=== PATIENT | female | born 1960 | race Caucasian/White ===

== ENCOUNTER → 2019-03-22 09:12 | Day surgery (SDC) | payer BC ==
[~2019-03-22 09:12] MED LIST: Buffered Lidocaine 1% SYRIN* 1 ML/SYRINGE INTRADERM ONE; Gelfoam 12-7 ADSORBABL SPONGE* 1 EA SPONGE ONE; HYDROcodone/ACET. 7.5/325 LIQ* 15 ML UDC ONE; Lactated Ringers 1000 ML Bag* 1,000 ML IV SCH; Lidocaine 2% EPI 1:200000 MPF*10-20 ML VIAL ONE; Lidocaine 2% PF * 5 ML VIAL ONE; Naloxone* 0.4 MG/ML 1 ML VIAL IV PRN; Ondansetron INJ* 2 MG/ML VIAL IV PRN; Oxymetazoline 0.05% NASAL SPR* 15 ML BTL ONE; Propofol* 10 MG/ML 20 ML BTL ONE; Sodium Citrate/Citric Acid* 15 ML UDC ONE; Sodium Citrate/Citric Acid* 15 ML UDC PO ONE; Succinylcholine* 20 MG/ML 10 ML VIAL ONE; Triamcinolone Acetonide* 40 MG/ML 1 ML VIAL ONE; fentaNYL* 50 MCG/ML 2 ML VIAL (100 MCG VIAL) IV PRN; fentaNYL* 50 MCG/ML 2 ML VIAL (100 MCG VIAL) ONE
--- NOTE | 2019-03-22 13:27 | OP ---
OPERATIVE REPORT: DATE OF OPERATION: 03/22/19 DATE OF : 60 SURGEON: Denilson Tobin MD PRE-OP DIAGNOSIS: Chronic left maxillary anterior and posterior ethmoid and frontal sinusitis. POST-OP DIAGNOSIS: Chronic left maxillary anterior and posterior ethmoid and frontal sinusitis. OPERATIVE PROCEDURE: Maxillary antrostomy, removal of tissue, anterior and posterior ethmoidectomy, and nasal frontal ductal exploration and dilatation. BRIEF HISTORY: This is a 58-year-old female with chronic sinusitis, purulent rhinorrhea with odor, n ot improving with medical management for close to a year. DESCRIPTION OF PROCEDURE: The patient was taken to the operating room, general anesthetic was given, the patient was intubated. Nose was decongested with Afrin placed pledgets. Left side was the only site operated on. CT scan was available and used in the operating room. A 0-degree telescope, 30-degree telescopes, and other endoscopic sinus surgery instruments including microshaver were utilized. Initially, we turned our attention to the left side. The uncinate proces s was identified, infiltrated with lidocaine with epinephrine in the middle turbinate and the septum. The uncinate process was then elevated and microshaved away. The antrostomy was then enlarged taki ng away some of the soft tissue and thickened mucosa. Antrum was full of purulent material, hyperpla stic mucosa. Cultures for aerobic and anaerobic were sent. The hyperplastic mucosa was then shaved off with the microshaver. Ethmoidectomy was carried out by entering the ethmoidal bulla coursing post eriorly through the ground lamella and towards the skull base and then working towards the lamina pap yracea laterally and into the nasal frontal duct area superiorly. The nasal frontal duct was explore d and curved suction was introduced in the frontal sinus and copious material was removed. Once adeq uate resection was carried out, the area was packed with Gelfoam which was soaked with steroids. Ócsar gifoam was utilized. The patient was then awakened and sent to the recovery room in stable condition. Instrument and spong e counts were correct. Blood loss was minimal. [id number]/[facility] #: [id number]
[2019-03-22 14:39] VITALS: BP 144/87
== END | disposition home or self-care (01) ==
LOC: OR 09:12
PROVIDERS: ATTEND Otolaryngology
DX: J32.8 Other chronic sinusitis (principal); I10 Essential (primary) hypertension; E78.00 Pure hypercholesterolemia, unspecified; E03.9 Hypothyroidism, unspecified; I47.1 Supraventricular tachycardia; M19.90 Unspecified osteoarthritis, unspecified site
CPT/HCPCS: 87070; 87073; 87077; 87186; 87205; 88305; 88311; A9270-GY; J0330; J2704; J3010; J3301

== ENCOUNTER 2019-06-06 15:46 | Emergency (ER) | payer BC ==
[2019-06-06 16:20] VITALS: BP 126/70
--- NOTE | 2019-06-06 17:01 | UC ---
Complaint Female HPI - HPI Summary HPI Summary: 58-year-old woman comes in with chief complaint of urinary urgency frequency and dysuria. Going on for about one day. The symptoms remind the patient of urinary tract infection. No fevers or chills. No suprapubic pain unless she is urinating. No flank pain. Has been drinking a lot of water which she thinks does help the symptoms. - History Of Current Complaint Chief Complaint: UCGU Stated Complaint: BURNING THROBBING URINATION Time Seen by Provider: 06/06/19 16:30 Pain Intensity: 3 - Allergies/Home Medications Allergies/Adverse Reactions: Allergies Allergy/AdvReac Type Severity Reaction Status Date / Time adalimumab [From Humira] Allergy localized Verified 06/06/19 16:21 reaction clarithromycin [From Biaxin] Allergy GI Upset Verified 06/06/19 16:21 epinephrine Allergy Tachycardia Verified 06/06/19 16:21 etanercept [From Enbrel] Allergy localized Verified 06/06/19 16:21 reaction iohexol Allergy Tachycardia Verified 06/06/19 16:21 nitrofurantoin Allergy Rash Verified 06/06/19 16:21 [From Macrodantin] ENVIRONMENTAL Allergy SINUS Uncoded 06/06/19 16:21 ISSUES PMH/Surg Hx/FS Hx/Imm Hx Previously Healthy: Yes - 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 Sinus 01/2019 - Family History Known Family History: Positive: Non-Contributory - Social History Alcohol Use: Rare Substance Use Type: None Smoking Status (MU): Never Smoked Tobacco Have You Smoked in the Last Year: No Review of Systems All Other Systems Reviewed And Are Negative: Yes Constitutional: Positive: Negative Skin: Positive: Negative Eyes: Positive: Negative ENT: Positive: Negative Respiratory: Positive: Negative Cardiovascular: Positive: Negative Gastrointestinal: Positive: Other - SEE HPI Genitourinary: Positive: Dysuria, Frequency, Urgency Motor: Positive: Negative Neurovascular: Positive: Negative Musculoskeletal: Positive: Negative Neurological: Positive: Negative Psychological: Positive: Negative Is Patient Immunocompromised?: Yes - ON METHOTREXATE Physical Exam Triage Information Reviewed: Yes Appearance: Well-Appearing, No Pain Distress, Well-Nourished Vital Signs: Initial Vital Signs Temp 97.8 F 06/06/19 16:16 Pulse 57 06/06/19 16:16 Resp 16 06/06/19 16:16 BP 126/70 06/06/19 16:16 Pulse Ox 98 06/06/19 16:16 Vital Signs Reviewed: Yes Eye Exam: Normal Eyes: Positive: Conjunctiva Clear Neck: Positive: Supple Respiratory: Positive: Lungs clear, No respiratory distress Cardiovascular: Positive: RRR Abdomen Description: Positive: Nontender, Soft. Negative: CVA Tenderness (R), CVA Tenderness (L) Bowel Sounds: Positive: Present Musculoskeletal: Positive: Strength Intact, ROM Intact Neurological: Positive: Alert, Muscle Tone Normal Psychological: Positive: Age Appropriate Behavior Skin Exam: Normal Complaint Female Dx - Differential Dx/Diagnosis Provider Diagnosis: UTI (urinary tract infection) Discharge - Sign-Out/Discharge Documenting (check all that apply): Patient Departure All imaging exams completed and their final reports reviewed: No Studies - Discharge Plan Condition: Stable Disposition: HOME Prescriptions: Cephalexin CAP* [Keflex CAP*] 500 mg PO TID #21 cap Patient Education Materials: Urinary Tract Infection in Women (ED) Referrals: Lalita Argueta EXCEPTIONAL STUDENT EDUCATION AIDE [Primary Care Provider] - Additional Instructions: FOLLOW UP WITH YOUR DOCTOR IF NOT COMPLETELY IMPROVED. GET RECHECKED SOONER IF YOUR CONDITION WORSENS OR ANY QUESTIONS OR CONCERNS. - Billing Disposition and Condition Condition: STABLE Disposition: Home
--- OUTSIDE RECORDS SUMMARY | 2019-06-06 23:23 | XMS REPORT | Continuity of Care Document ---
:1960 External Reference #:[id number] Author Name Palak Weston O.D. Address [address] [place] [id number] Care Team Providers Name Role Phone Lalita Argueta DISTILLERY WORKER - Nurse Care Team Information Flange Turner [phone] Practitioner Carline Rolle DISTILLERY WORKER - Nurse Care Team Information Flange Turner [phone] Practitioner Problems Active Problems Provider Date Hypercholesterolemia Onset: Irregular heart beat Onset: Primary fibromyalgia syndrome Onset: Irritable bowel syndrome Onset: Gastroesophageal reflux disease Onset: Hypothyroidism Onset: Primary iridocyclitis Palak Weston O.D. Onset: 07/19/2015 Tear film insufficiency Palak Weston O.D. Onset: 07/19/2015 Nuclear senile cataract Palak Weston O.D. Onset: 07/24/2015 Vitreous degeneration Palak Wseton O.D. Onset: 07/24/2015 Conjunctival hemorrhage Palak Weston O.D. Onset: 08/16/2015 Keratoconjunctivitis sicca, not specified Palak Weston O.D. Onset: as Sjogren's Social History Type Date Description Comments Sex Unknown ETOH Use Occasionally consumes alcohol Tobacco Use Start: Unknown Patient has never smoked Recreational Drug Use Denies Drug Use Smoking Status Reviewed: 06/05/19 Patient has never smoked Allergies, Adverse Reactions, Alerts Active Allergies Reaction Severity Comments Date Macrodantin Urticaria 07/19/2015 Epinephrine 08/05/2016 Embrel 08/09/2017 Humara 08/09/2017 Medications Active Medications SIG Qnty Indications Ordering Provider Date Prednisolone Acetate 1 drop left eye 15ml H20.012 Palak Carrera 05/05/2019 1% every 2 hours Ronaldo Weston Suspension Olopatadine HCL Instill 1 Drop 5units Cristel Coronado, 04/11/2019 0.1% Into Both Eyes O.DLula Solution Twice A Day as Needed Genteal Mild as needed Palak Carrera 07/18/2015 0.2% Ronaldo Weston Solution Prilosec 40 mg qd Unknown 40mg Capsules DR Levothyroxine Sodium Unknown 25mcg Tablets Toprol XL Unknown 25mg Tablets ER 24HR Pravachol qd Unknown 40mg Tablets Amitriptyline HCL Unknown 10mg Tablets Methotrexate 4 tabs weekly Unknown 2.5mg Tablets Folic Acid Unknown 1mg Tablets Claritin as needed Unknown 10mg Capsules Bactrim Unknown 400-80mg Tablets Diflucan Unknown 10mg/ml Suspension Rec Immunizations Description No Information Available Vital Signs Description No Information Available Results Description No Information Available Procedures Date Code Description Status 05/05/2019 43250 Est Patient Intermediate Exam Completed Medical Devices Description No Information Available Encounters Type Date Location Provider Dx Diagnosis Office Visit 05/15/2019 Palak Noel H20.012 Primary 11:20a beltran RAMON O.D. iridocyclitis, left eye Office Visit 05/08/2019 Palak Noel H20.012 Primary 3:20p beltran RAMON O.D. 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 05/08/2019 H25.13 Age-related nuclear cataract, bilateral Palak Weston O.D. 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 Plan of Treatment Future Appointment(s):08/23/2019 11:30 am - Palak Weston O.D. at Ahsan Cheatham MD, 06/05/2019 - Palak Weston O.D.H20.012 Primary iridocyclitis, left eyeComments:continue prednisolone 1xday for 1 week then stopFollow up:1 Year Follow Up You can expect to have your eyes dilated at your next visit. If Dr. Weston orders any additional testing, it may require extra time. We recommend that you bring sunglasses, as dilation drops often make you light sensitive until they wear off. We always recommend you bring someone to drive you home if you are uncomfortable driving with your eyes dilated. If you have any questions before your next visit, feel free to call our office at . Functional Status Description No Information Available Mental Status Description No Information Available Referrals Description No Information Available
--- OUTSIDE RECORDS SUMMARY | 2019-06-06 23:24 | XMS REPORT | Continuity of Care Document ---
:1960 External Reference #:[id number] Author Name Denilson Tobin MD Address [address] [place] [address] Care Team Providers Name Role Phone Lalita Argueta F.N.P. Care Team Information [employer]arrings Fabricator Unavailable Lalita Argueta F.N.P. Primary Care Physician Unavailable Payers Date Identification Numbers Payment Provider Subscriber Policy Number: [id number] [facility] Radha Morales Group Number: [id number] [address] [address] PayID: [id number] [place] [address] Problems Active Problems Provider Date Chronic sinusitis Denilson Tobin MD Onset: 02/13/2019 Family History Date Family Member(s) Observation Comments General Allergies General Asthma General Thyroid Disease Social History Type Date Description Comments Sex Unknown Occupation Registered Nurse director Tobacco Use Start: Unknown Never Smoked Cigarettes Tobacco Use Start: Unknown Never Smoked Cigars Tobacco Use Start: Unknown Never Smoked A Pipe Smoking Status Reviewed: 03/28/19 Never Smoked A Pipe Smokeless Tobacco Never Used Smokeless Tobacco ETOH Use Currently occasionally consumes alcohol Allergies, Adverse Reactions, Alerts Active Allergies Reaction Severity Comments Date Macrodantin Hives 02/13/2019 Biaxin Nausea 02/13/2019 Medications Active Medications SIG Qnty Indications Ordering Date Provider Diflucan Take 2 tabs day 1, 15tabs Denilson Tobin 05/05/2019 100mg then 1 pill for 13 MD Tablets days. Sulfamethoxazole/Tri take 1 pill 2 times 28tabs J32.2 Denilson Tobin 10/2018 methoprim DS a day for 14 days. MD 800-160mg Tablets Prednisone 4 tabs po every day 30tabs J32.2 Denilson Tobin 04/24/2019 10mg x3 d, then 3 tabs MD Tablets po every day x3 d, then 2 tabs po every day x3d, then 1 tab po qd x3d, then off Metoprolol Succinate 1 po qd Db Duran 08/18/2018 ER 50mg Tablets ER 24HR Amitriptyline HCL take two tablets by 180tabs Lalita Argueta, 06/21/2013 mouth at bedtime as F.N.P. 10mg Tablets needed Levothyroxine Sodium Take One Tablet By 90tabs E03.8 Irina Almaraz 12/22 Mouth Every Day Florentin, REllie 25mcg Tablets Leucovorin Calcium Take 1 Tablet By Unknown Mouth The Day After 5mg Tablets Methotrexate as Directed Prilosec OTC 40 mg 1 po qd Lalita Argueta, F.N.P. Pravachol Lalita Argueta, 40mg F.N.P. Tablets Folic Acid 10 mg po qd Lalita Argueta, F.N.P. History Medications Nystatin Swish And 5 ml by mouth 150ml Santi Castellanos, 05/05/2019 - Swallow four times a day 05/05/2019 Doxycycline Hyclate take 1 caspule 20caps Denilson Tobin MD 03/30/2019 - every 12 hours 04/23/2019 100mg Capsules Vital Signs Date Vital Result Comment 04/24/2019 2:16pm Weight 160.00 lb Weight 72.576 kg Height 60 inches 5'0" Height in cm's 152.4 cm BMI (Body Mass Index) 31.2 kg/m2 03/30/2019 9:00am Weight 160.00 lb Weight 72.576 kg Height 60 inches 5'0" Height in cm's 152.4 cm BMI (Body Mass Index) 31.2 kg/m2 03/29/2019 10:36am BP Systolic 158 mmHg Manual BP Diastolic 90 mmHg Manual Heart Rate 70 /min Respiratory Rate 18 /min Weight 160.00 lb Weight 72.576 kg Height 60 inches 5'0" Height in cm's 152.4 cm BMI (Body Mass Index) 31.2 kg/m2 03/28/2019 10:13am BP Systolic 156 mmHg Manual BP Diastolic 96 mmHg Manual 03/28/2019 10:09am BP Systolic 175 mmHg Automatic Cuff BP Diastolic 99 mmHg Automatic Cuff Heart Rate 54 /min Weight 160.00 lb Weight 72.576 kg 03/13/2019 9:27am BP Systolic 150 mmHg BP Diastolic 84 mmHg Heart Rate 61 /min Weight 161.00 lb Weight 73.030 kg Height 60 inches 5'0" Height in cm's 152.4 cm BMI (Body Mass Index) 31.4 kg/m2 02/13/2019 9:27am Weight 161.00 lb Weight 73.030 kg Height 60 inches 5'0" Height in cm's 152.4 cm BMI (Body Mass Index) 31.4 kg/m2 Results Test Date Facility Test Result H/L Range Note Wound 04/24/2019 [facility] Wound/Misc SEE RESULT 1 Culture/Sensi c/o Department of Laboratories [place] [address] Stain [phone] Wound 03/22/2019 [facility] Wound/Misc SEE RESULT 2 Culture/Sensi c/o Department of Laboratories [place] [address] Stain [phone] Laboratory test 03/22/2019 [facility] Anaerobic SEE RESULT 3 finding c/o Department [place] [address] [phone] Surgical Pathology SEE RESULT BELOW 4 1 SEE RESULT BELOW Name: EVELYNRADHA Jeimy : [address]: Maggi Torres PA-C Acct: [id number] Unit: [id number] AGE: 58 Location: [facility] Re04/24/19 SEX: F Status: REG REF SPEC: [id number] CONSTANTIN: 04/24/[address]: Maggi Sumner REQ: [id number] RECD: 04/24/19 STATUS: COMP _ SOURCE: WOUND SPDESC: ORDERED: Culture Stain COMMENTS: Left maxillary sinus-please run culture for sensitivities Specimen Description Left Maxillary Sinus Procedure Result Reported Site Wound/Misc Gram Stain Final 04/24/19- 1739 ML 1+ Neutrophils No Organisms Seen Wound/Misc Culture Final 04/27/19- 1018 ML Organism 1 ENTEROBACTER CLOACAE Quantity 1+ Organism 2 STAPHYLOCOCCUS AUREUS Quantity 2+ Organism 3 ALCALIGENES SPECIES Quantity 2+ Organism 4 KLEBSIELLA PNEUMONIAE Quantity 1+ 1. ENTEROBACTER CLOACAE M.I.C. RX --------- ------ Cefazolin >=64 R Cefepime <=1 S Ceftriaxone <=1 S Ciprofloxacin <=0.25 S Gentamicin <=1 S Levofloxacin <=0.12 S Meropenem <=0.25 S Tetracycline 2 S Pipercillin/Tazobactam <=4 S Trimethoprim/Sulfamethoxazole <=20 S CONTINUED ON NEXT PAGE DEPARTMENT OF PATHOLOGY, [address] [place] [address] Von Zhu M.D. Director FAB[facility] # [id number] Patient: EVELYNRADHA S [id number] (Continued) Specimen: [id number] Collected: 04/24/19 Received: 04/24/19-7094 (Continued) Procedure Result Reported Site Wound/Misc Culture Final (continued) 04/27/19- 1018 1. ENTEROBACTER CLOACAE (continued) M.I.C. RX --------- ------ Amoxicillin/Clavulanic Acid >=32 R Aztreonam <=1 S 2. STAPHYLOCOCCUS AUREUS M.I.C. RX --------- ------ Penicillin >=0.5 R Clindamycin R This isolate is presumed to be resistant based on detection of inducible Clindamycin resistance. Clindamycin may still be effective in some patients. Erythromycin R Gentamicin <=0.5 S Linezolid 2 S Oxacillin 0.5 S * Quinupristin/Dalfopristin <=0.25 S Rifampin <=0.5 S Tetracycline 2 S Doxycycline - Deduced S * Minocycline - Deduced S Trimethoprim/Sulfamethoxazole <=10 S Vancomycin 1 S Imipenem-Deduced S * Ampicillin/Sulbactam-Deduced S Cefazolin-Deduced S 3. ALCALIGENES SPECIES M.I.C. RX --------- ------ Cefazolin 32 R Cefepime 8 S Ceftriaxone <=1 S Ciprofloxacin 1 S Gentamicin 2 S CONTINUED ON NEXT PAGE DEPARTMENT OF PATHOLOGY, [address] [place] [address] Von Zhu M.D. Director FABIODC # [id number] Patient: RADHA MORALES [id number] (Continued) Specimen: [id number] Collected: 04/24/19 Received: 04/24/19 (Continued) Procedure Result Reported Site Wound/Misc Culture Final (continued) 04/27/19- 1018 3. ALCALIGENES SPECIES (continued) M.I.C. RX --------- ------ Levofloxacin 1 S Meropenem <=0.25 S Tetracycline >=16 R Pipercillin/Tazobactam <=4 S Trimethoprim/Sulfamethoxazole <=20 S Aztreonam >=64 R 4. KLEBSIELLA PNEUMONIAE M.I.C. RX --------- ------ Ampicillin >=32 R Cefazolin <=4 S Cefepime <=1 S Ceftriaxone <=1 S Ciprofloxacin <=0.25 S Gentamicin <=1 S Levofloxacin <=0.12 S Meropenem <=0.25 S Tetracycline <=1 S Pipercillin/Tazobactam <=4 S Trimethoprim/Sulfamethoxazole <=20 S Amoxicillin/Clavulanic Acid <=2 S Aztreonam <=1 S * These antibiotics are not available in the [facility] Formulary Contact the Microbiology Department for any additional antibiotic reporting. Contact the Microbiology Department for any additional antibiotic reporting. * ML - Main Lab . END OF REPORT DEPARTMENT OF PATHOLOGY, [address] [place] [address] Von Zhu M.D. Director [facility] # [id number] 2 SEE RESULT BELOW Name: RADHA MORALES : [address]: Francois Tobin MD Acct: [id number] Unit: [id number] AGE: 58 Location: [place] Re03/22/19 SEX: F Status: REG SDC SPEC: [id number] CONSTANTIN: 03/22/19-1230 [facility] DR: Francois Tobin MD REQ: [id number] RECD: 03/22/194269 STATUS: COMP NATHAN DR: Lalita Rolle NP _ SOURCE: NOSE INTER SPDESC: ORDERED: Culture Stain QUERIES: Specimen Description LEFT MAXILLARY SINUS Procedure Result Reported Site Wound/Misc Gram Stain Final 03/22/19- 1550 ML 4+ Neutrophils 4+ Gram Positive Cocci in Clusters, resembling Staph Wound/Misc Culture Final 03/26/19- 1045 ML Organism 1 STAPHYLOCOCCUS AUREUS Quantity 3+ 1. STAPHYLOCOCCUS AUREUS M.I.C. RX --------- ------ Penicillin >=0.5 R Clindamycin R This isolate is presumed to be resistant based on detection of inducible Clindamycin resistance. Clindamycin may still be effective in some patients. Erythromycin >=8 R Gentamicin <=0.5 S Linezolid 2 S Oxacillin <=0.25 S * Quinupristin/Dalfopristin <=0.25 S Rifampin <=0.5 S Tetracycline <=1 S Doxycycline - Deduced S * Minocycline - Deduced S Trimethoprim/Sulfamethoxazole <=10 S Vancomycin 1 S Imipenem-Deduced S CONTINUED ON NEXT PAGE DEPARTMENT OF PATHOLOGY, [address] [place] [address] Von Zhu M.D. Director [facility] # [id number] Patient: RADHA MORALES [id number] (Continued) Specimen: [id number] Collected: 03/22/19 Received: 03/22/19 (Continued) Procedure Result Reported Site Wound/Misc Culture Final (continued) 03/26/19- 1044 1. STAPHYLOCOCCUS AUREUS (continued) M.I.C. RX --------- ------ * Ampicillin/Sulbactam-Deduced S Cefazolin-Deduced S * These antibiotics are not available in the [facility] Formulary Contact the Microbiology Department for any additional antibiotic reporting. * - [facility] . END OF REPORT DEPARTMENT OF PATHOLOGY, [address] [place] [address] Von Zhu M.D. Director [facility] # [id number] 3 SEE RESULT BELOW Name: RADHA MORALES : [address]: Francois Tobin MD Acct: [id number] Unit: [id number] AGE: 58 Location: [place] Re03/22/19 SEX: F Status: REG SDC SPEC: [id number] CONSTANTIN: 03/22/19-12[address] [facility] DR: Francois Tobin MD REQ: [id number] RECD: 03/22/190331 STATUS: SOY EVANS DR: Lalita Rolle NP _ SOURCE: WOUND SPDESC:MAXILLARY ORDERED: Anaerobic Cult Procedure Result Reported Site Anaerobic Culture Final 03/26/19- 1046 ML Anaerobe Culture No Anaerobes Day 4 * ML - Main Lab . END OF REPORT DEPARTMENT OF PATHOLOGY, [address] [place] [address] Von Zhu M.D. Director [facility] # [id number] 4 SEE RESULT BELOW Name: RADHA MORALES : [address]: Francois Tobin MD Acct: [id number] Unit: [id number] AGE: 58 Location: [place] Re03/22/19 SEX: F Status: REG SDC SPEC: [id number] CONSTANTIN: 03/22/19-[address]: Francois Tobin MD REQ: [id number] RECD: 03/22/19928 STATUS: SOUT _ ORDERED: Ian, LEVEL 4 FINAL DIAGNOSIS Left maxillary ethmoid sinus contents: -- Chronically inflamed respiratory mucosal fragments and bone. PRE-OPERATIVE DIAGNOSIS Chronic sinusitis GROSS DESCRIPTION The specimen is received in formalin labeled, Contents of Left Maxillary Ethmoid Sinus, and consists of a 4.6 x 2.8 x 0.5 cm aggregate of phillips-pink irregular mucosal tissue fragments admixed with probable bone and scant red-brown blood clot. Entirely submitted, two cassettes following decalcification. Signed by and Reported on: Von Zhu MD 1351 END OF REPORT DEPARTMENT OF PATHOLOGY, [address] [place] [address] Von Zhu M.D. Director [facility] # [id number] Procedures Date Code Description Status 05/11/2019 79467 Nasal Endoscopy, Diagnostic Completed 04/24/2019 00472 Nasal Endoscopy, Diagnostic Completed 03/28/2019 18574 Nasal Endoscopy W/ Debridement Completed 03/22/2019 81691 Nasal/Sinus Endo W/ Frontal Exploration Completed 03/22/2019 91974 Nasal Endoscopy W/Maxllary Antrostomy W/Excision Of Poylp Completed 03/22/2019 73262 Nasal Endoscopy/Ethmoidectomy, Total Completed Encounters Type Date Location Provider Dx Diagnosis Office Visit 03/30/2019 [place],[facility] Denilson Tobin J32.9 Chronic sinusitis, 9:15a 10/25/07 unspecified Office Visit 03/13/2019 [place],[facility] Denilson Tobin32Lula9 Chronic sinusitis, 9:30a 10/25/07 unspecified Office Visit 02/13/2019 [place] Denilson Tobin32Lula9 Chronic sinusitis, 9:00a 10/25/07 unspecified Plan of Treatment Future Appointment(s):08/18/2019 11:30 am - Denilson Tobin MD at [place],[facility] - Denilson Tobin MDJ32.9 Chronic sinusitis, unspecifiedComments :Continue nasal washes twice a day, do this for 2 weeks, continue Nasonex for 3- 4 months recheck back4 months.
--- OUTSIDE RECORDS SUMMARY | 2019-06-06 23:24 | XMS REPORT | Continuity of Care Document ---
:1960 External Reference #:[id number] Author Name Palak Weston O.D. Address [address] [place] [address] Care Team Providers Name Role Phone Isaiah Arguetacharlottemaryanne ZENIA Primary Care Physician Unavailable Payers Date Identification Numbers Payment Provider Subscriber Policy Number: [id number] [facility] Radha Morales PayID: [id number] [place] [id number] Problems Active Problems Provider Date Hypercholesterolemia Onset: Irregular heart beat Onset: Primary fibromyalgia syndrome Onset: Irritable bowel syndrome Onset: Gastroesophageal reflux disease Onset: Hypothyroidism Onset: Primary iridocyclitis Palak Weston O.D. Onset: 07/19/2015 Tear film insufficiency Palak Weston O.D. Onset: 07/19/2015 Nuclear senile cataract Palak Weston O.D. Onset: 07/24/2015 Vitreous degeneration Palak Weston O.D. Onset: 07/24/2015 Conjunctival hemorrhage Palak Weston O.D. Onset: 08/16/2015 Keratoconjunctivitis sicca, not specified Palak Weston O.D. 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 Work Status Full-Time Employment ETOH Use Occasionally consumes alcohol Tobacco Use Start: Unknown Patient has never smoked Recreational Drug Use Denies Drug Use Smoking Status Reviewed: 05/15/19 Patient has never smoked Allergies, Adverse Reactions, Alerts Active Allergies Reaction Severity Comments Date Macrodantin Urticaria 07/19/2015 Epinephrine 08/05/2016 Embrel 08/09/2017 Humara 08/09/2017 Medications Active Medications SIG Qnty Indications Ordering Provider Date Prednisolone Acetate 1 drop left eye 15ml H20.012 Palak Carrera 05/05/2019 1% every 2 hours [place], O.DLula Suspension Olopatadine HCL Instill 1 Drop 5units Cristel Coronado, 04/11/2019 0.1% Into Both Eyes O.D. Solution Twice A Day as Needed Genteal Mild as needed Palak Carrera 07/18/2015 0.2% [place], O.D. Solution Diflucan Unknown 10mg/ml Suspension Rec Bactrim Unknown 400-80mg Tablets Claritin as needed Unknown 10mg Capsules Folic Acid Unknown 1mg Tablets Methotrexate 4 tabs weekly Unknown 2.5mg Tablets Amitriptyline HCL Unknown 10mg Tablets Pravachol qd Unknown 40mg Tablets Toprol XL Unknown 25mg Tablets ER 24HR Levothyroxine Sodium Unknown 25mcg Tablets Prilosec 40 mg qd Unknown 40mg Capsules DR History Medications Prednisolone Acetate 1 drop left eye 15ml Cristel Coronado, 03/29/2018 - three times a day O.D. 05/17/2018 1% Suspension Erythromycin apply thin strip 1Tube H20.012 Palak Carrera 08/16/2015 - 5mg/GM to all four Enrico, O.D. 08/08/2017 Ointment eyelid margins x every night for 3 weeks Pred Forte left eye every H20.012 Palak Carrera 07/19/2015 - 1% day used twice Enrico, O.D. 08/23/2015 Suspension yesterday Patanol Instill 1 Drop 5units Cristel Coronado, 07/18/2015 - 0.1% Solution Into Both Eyes O.D. 05/08/2018 Twice A Day as Needed Nasacort Allergy Unknown - 24HR 05/17/2018 55mcg/Act Aerosol Procedures Date Code Description Status 05/05/2019 10161 Est Patient Intermediate Exam Completed 08/22/2018 13350 Est Patient Comprehensive Exam Completed 05/18/2018 10499 Est Patient Intermediate Exam Completed 03/29/2018 21586 Est Patient Intermediate Exam Completed 08/09/2017 88062 Determination Of Refractive State Completed 08/09/2017 59129 Est Patient Comprehensive Exam Completed 08/05/2016 21274 Determination Of Refractive State Completed 08/05/2016 34571 Est Patient Comprehensive Exam Completed 08/26/2015 10963 Est Patient Intermediate Exam Completed 07/19/2015 34405 Est Patient Intermediate Exam Completed 01/08/2015 24713 Est Patient Comprehensive Exam Completed 12/13/2013 65236 Est Patient Intermediate Exam Completed 12/11/2013 18195 Est Patient Comprehensive Exam Completed 11/04/2012 11722 Est Patient Intermediate Exam Completed 09/12/2012 35491 Est Patient Comprehensive Exam Completed 09/12/2012 86693 Determination Of Refractive State Completed 07/16/2012 90822 Est Patient Intermediate Exam Completed 09/24/2011 64873 Est Patient Intermediate Exam Completed 09/14/2011 78195 Determination Of Refractive State Completed 09/14/2011 50621 Est Patient Comprehensive Exam Completed 07/01/2011 43384 Est Patient Intermediate Exam Completed 03/02/2011 50093 Est Patient Intermediate Exam Completed 09/22/2008 17013 Est Patient Intermediate Exam Completed 02/06/2008 99026 Est Patient Intermediate Exam Completed 02/02/2008 89895 Determination Of Refractive State Completed 02/02/2008 36677 Est Patient Comprehensive Exam Completed 05/24/2006 52575 Est Patient Intermediate Exam Completed 10/01/2005 35431 Determination Of Refractive State Completed 10/01/2005 03764 Est Patient Comprehensive Exam Completed 09/04/2005 12456 Cancelled Appointment Completed Encounters Type Date Location Provider Dx Diagnosis Office Visit 05/08/2019 Palak Noel H20.012 Primary 3:20p , pc Ronaldo Weston iridocyclitis, left eye H25.13 Age-related nuclear cataract, bilateral Office Visit 04/07/2018 3:15p Ahsan Mccarthy H20.012 Primary MD Linden, beltran Coronado O.D. iridocyclitis, left eye Office Visit 08/16/2015 11:30a Ahsan Carrera H20.012 Primary MD Linden, beltran Weston O.D. iridocyclitis, left eye H11.32 Conjunctival hemorrhage, left eye H16.223 Keratoconjunct sicca, not specified as Sjogren's, bilateral Office Visit 07/24/2015 1:20p Ahsan Carrera 364.01 Iridocyclandrew Cheatham MD, beltran Weston O.D. Primary 366.16 Senile Nuclear Sclerosis / Cataract 379.21 Vitreous Degeneration Office Visit 09/07/2014 12:30p Ahsan Mccarthy 379.00 Scleritis Unspec MD Linden, beltran Coronado O.D. Office Visit 09/05/2014 4:30p Ahsan Mccarthy 379.00 Scleritis Unspec MD Linden, beltran Coronado O.D. Office Visit 07/13/2014 10:15a Ahsan Mccarthy 375.15 Dry Eyes (Sickaelyn Cheatham MD, beltran Coronado O.D. Syndrome) Office Visit 01/15/2014 11:20a Ahsan Carrera 364.01 Iridocyclandrew Cheatham MD, beltran Weston O.D. Primary Office Visit 12/25/2013 4:00p Ahsan [email or web address] Iridocyclandrew Cheatham MD, beltran Weston O.D. Primary Office Visit 12/20/2013 1:30p Ahsan Carrera 364.01 Iridocyclandrew Cheatham MD, beltran Weston O.D. Primary Office Visit 12/18/2013 8:30a Ahsan [email or web address] Iridocyclandrew Cheatham MD, beltran Weston O.D. Primary Office Visit 01/31/2013 8:15a Ahsan [email or web address] Iridocyclandrew Cheatham MD, beltran Clement M.D. Primary Office Visit 01/25/2013 2:15p Ahsan Dan 364.01 Iridocyclitis Arleo, MD, beltran Clement M.D. Primary Office Visit 01/11/2012 1:00p Ahsan Evans. Iricyclandrew Cheatham MD, beltran Sanchez O.D. Primary Office Visit 12/29/2011 2:30p Ahsan Evans. Franklin Cheatham MD, beltran Harkins M.D. Primary Office Visit 07/04/2011 12:45p Ahsan Evans. Franklin Cheatham MD, beltran Sanchez O.D. Primary Office Visit 04/09/2011 8:15a Ahsan Evans.Jj Cheatham MD, beltran Sanchez O.D. Primary Office Visit 03/25/2011 8:00a Ahsan Evans. Franklin Cheatham MD, beltran Sanchez O.D. Primary Office Visit 03/16/2011 12:45p Ahsan Evans.Jj Cheatham MD, beltran Sanchez O.D. Primary Office Visit 03/12/2011 10:15a Ahsan Evans.Jj Cheatham MD, beltran Sanchez O.D. Primary Office Visit 03/11/2011 2:30p Ahsan Evans.Jj Cheatham MD, beltran Harkins M.D. Primary Office Visit 03/11/2011 11:30a Ahsan Evans. Franklin Cheatham MD, beltran Sanchez O.D. Primary Office Visit 03/09/2011 2:15p Ahsan Evans.Jj Cheatham MD, beltran Sanchez O.D. Primary Office Visit 03/06/2011 11:15a Ahsan Evans.Jj Cheatham MD, beltran Sanchez O.D. Primary Office Visit 03/05/2011 8:30a Ahsan Evans. Franklin Cheatham MD, beltran Sanchez O.D. Primary Office Visit 12/26/2008 1:30p Ahsan Domingo01 Iricyclandrew Cheatham MD, beltran Clement M.D. Primary Office Visit 12/12/2008 1:15p Ahsan Dan 364.01 Iricyclandrew Cheatham MD, beltran Clement M.D. Primary Office Visit 12/05/2008 1:30p Ahsan Evans.[email or web address] Franklin Cheatham MD, beltran Clement M.D. Primary Office Visit 11/28/2008 3:15p Ahsan Evans.01 Catarinocyclandrew Cheatham MD, beltran Clement M.D. Primary Office Visit 11/23/2008 11:30a Ahsan Evans.01 Franklin Cheatham MD, beltran Sanchez O.D. Primary Office Visit 11/15/2008 8:00a Ahsan Evans.01 Franklin Cheatham MD, beltran Sanchez O.D. Primary Office Visit 11/03/2008 10:00a Ahsan Evans.01 Franklin Cheatham MD, beltran Sanchez O.D. Primary Office Visit 10/27/2008 9:30a Ahsan Evans.01 Franklin Cheatham MD, beltran Sanchez O.D. Primary Office Visit 10/22/2008 8:00a Ahsan Evans.01 Franklin Cheatham MD, beltran Sanchez O.D. Primary Office Visit 10/13/2008 10:00a Ahsan Evans.01 Franklin Cheatham MD, beltran Sanchez O.D. Primary Office Visit 10/06/2008 10:00a Ahsan Evans.[email or web address] Franklin Cheatham MD, beltran Sanchez O.D. Primary Office Visit 10/02/2008 11:45a Ahsan Evans.[email or web address] Franklin Cheatham MD, beltran Sanchez O.D. Primary Office Visit 09/29/2008 10:15a Ahsan Evans.01 Franklin Cheatham MD, beltran Sanchez O.D. Primary Office Visit 09/24/2008 1:00p Ahsan [email or web address] Iridocyclandrew Cheatham MD, beltran Sanchez O.D. Primary Office Visit 01/12/2008 4:10p Ahsan Carrera 364.01 Iridocyclandrew Cheatham MD, beltran Weston O.D. Primary Office Visit 12/21/2007 11:10a Ahsan [email or web address] Iricyclandrew Cheatham MD, beltran Weston O.D. Primary Office Visit 12/05/2007 11:10a Ahsan Evans.[email or web address] Iriwillow Cheatham MD, beltran Weston O.D. Primary Office Visit 11/21/2007 9:10a Ahsan Evans.01 Franklin Cheatham MD, beltran Weston O.D. Primary Office Visit 11/14/2007 9:20a Ahsan Carrera 365.04 Ocular Hypertension MD Linden, beltran Weston O.D. Office Visit 11/07/2007 1:20p Ahsan [email or web address] Iridocyclandrew Cheatham MD, beltran Weston O.D. Primary Office Visit 11/04/2007 1:20p Ahsan Evans.[email or web address] Franklin Cheatham MD, beltran Weston O.D. Primary Office Visit 10/31/2007 11:00a Ahsan Evans.Jj Cheatham MD, beltran Weston O.D. Primary Office Visit 10/28/2007 3:45p Ahsan [email or web address] Iridocyclandrew Cheatham MD, beltran Cheatham M.D. Primary Plan of Treatment Future Appointment(s):08/23/2019 11:30 am - Palak Weston O.D. at Ahsan Cheatham MD, 05/15/2019 - Palak Weston O.D.H20.012 Primary iridocyclitis, left eyeComments:CONTINUE THE PREDNISOLONE DROPS 4XDAY FOR 4 DAYS , THEN 3XDAY FOR 1 WEEK, THEN 2XDAY FOR 1 WEEK, [id number] FOR 1 WEEK, THEN STOPFollow up:3 Week Follow Up
== END 2019-06-06 17:11 | disposition home or self-care (01) ==
LOC: UCEAST 15:46
DX: N39.0 Urinary tract infection, site not specified (principal); E03.9 Hypothyroidism, unspecified; I10 Essential (primary) hypertension; D89.89 Other specified disorders involving the immune mechanism, not elsewhere classified
CPT/HCPCS: 81002; 87077; 87086; 87186; 99212; G0463